=== PATIENT | female | born 1975 | race Caucasian/White ===

== ENCOUNTER 2017-06-15 09:28 | Emergency (ER) | payer MEDICAID ==
[2017-06-15 09:29] VITALS: BMI 26.2
[2017-06-15 09:56] VITALS: TEMP 98.3; O2SAT 99
--- NOTE | 2017-06-15 10:52 | ED PDOC ---
Arrival/HPI - General Chief Complaint: Cough, Cold, Congestion Time Seen by Provider: 06/15/17 10:30 Historian: Patient - History of Present Illness Narrative History of Present Illness (Text): 06/15/17 10:49 Pt is a 42 year old female c/o left sinus pain and left eye pain along with cough and nasal congestion for the past 2 days. Pt states that she has phlegm that she cannot blow out. Denies SHELBY, fever, chills, n/v/d chest pain, sob or any other complaints. Also here to get a refill on her medication for gastritis for the previous diagnosis of GERD. 06/16/17 10:33 Time/Duration: 24 hours Symptom Onset: Gradual Symptom Course: Unchanged Quality: Aching Severity Level: Mild Activities at Onset: Light Context: Home Past Medical History - Provider Review Nursing Documentation Reviewed: Yes - Travel History Have you recently traveled outside US w/in the past 3 mons?: No - Past History Past History: Non-Contributing - Infectious Disease Hx of Infectious Diseases: None - Tetanus Immunization Tetanus Immunization: Unknown - Past Medical History Past Medical History: No Previous - Cardiac Hx Cardiac Disorders: No - Pulmonary Hx Respiratory Disorders: No - Neurological Hx Neurological Disorder: No - HEENT Hx HEENT Disorder: No - Renal Hx Renal Disorder: No - Endocrine/Metabolic Hx Endocrine Disorders: No - Hematological/Oncological Hx Blood Disorders: No - Integumentary Hx Dermatological Disorder: Yes Hx Psoriasis: Yes - Musculoskeletal/Rheumatological Hx Musculoskeletal Disorders: Yes Other/Comment: fibromyalgia - Gastrointestinal Hx Gastrointestinal Disorders: Yes Hx Gastritis: Yes - Genitourinary/Gynecological Hx Genitourinary Disorders: No - Psychiatric Hx Psychophysiologic Disorder: No Hx Substance Use: No - Surgical History Hx Cholecystectomy: Yes - Anesthesia Hx Anesthesia: Yes Hx Anesthesia Reactions: No Hx Malignant Hyperthermia: No - Suicidal Assessment Feels Threatened In Home Enviroment: No Family/Social History - Physician Review Nursing Documentation Reviewed: Yes Family/Social History: Unknown Family HX Smoking Status: Never Smoked Hx Alcohol Use: No Hx Substance Use: No Hx Substance Use Treatment: No Allergies/Home Meds Allergies/Adverse Reactions: Allergies seafood Allergy (Uncoded 06/15/17 09:50) RASH Review of Systems - Review of Systems Constitutional: Normal Eyes: Eye Pain (left) ENT: Rhinorrhea, Sinus Congestion Respiratory: Cough Cardiovascular: Normal Gastrointestinal: Normal Genitourinary Female: Normal Musculoskeletal: Normal Skin: Normal Neurological: Normal Endocrine: Normal Hemo/Lymphatic: Normal Psychiatric: Normal Physical Exam Vital Signs Reviewed: Yes Vital Signs Temp Pulse Resp BP Pulse Ox 06/15/17 11:29 79 18 129/79 99 06/15/17 09:50 98.3 F 94 H 16 145/95 H 99 Temperature: Afebrile Blood Pressure: Normal Pulse: Regular Respiratory Rate: Normal Appearance: Positive for: Well-Appearing, Non-Toxic, Comfortable Pain Distress: None Mental Status: Positive for: Alert and Oriented X 3 - Systems Exam Head: Present: Atraumatic, Normocephalic Pupils: Present: PERRL Extroacular Muscles: Present: EOMI Conjunctiva: Present: Injected Mouth: Present: Moist Mucous Membranes Pharnyx: Present: Normal Nose (Internal): Present: Other (Left sinus pain on palpation) Neck: Present: Normal Range of Motion Respiratory/Chest: Present: Clear to Auscultation, Good Air Exchange. No: Respiratory Distress, Accessory Muscle Use Cardiovascular: Present: Regular Rate and Rhythm, Normal S1, S2. No: Murmurs Abdomen: Present: Normal Bowel Sounds. No: Tenderness, Distention, Peritoneal Signs Back: Present: Normal Inspection Upper Extremity: Present: Normal Inspection. No: Cyanosis, Edema Lower Extremity: Present: Normal Inspection. No: Edema Neurological: Present: GCS=15, CN II-XII Intact, Speech Normal Skin: Present: Warm, Dry, Normal Color. No: Rashes Psychiatric: Present: Alert, Oriented x 3, Normal Insight, Normal Concentration Medical Decision Making ED Course and Treatment: 06/15/17 10:53 Impression Pt is a 42 year old female c/o sinus pain and left eye pain along with cough and nasal congestion for the past 2 days. Plan labs assess and dispo Progress Note Advised pt to use fluticasone nasal spray q12 along with [place] nasal spray q2-4 for sinus congestion; if cough is persistent she can buy OTC cough syrup but recommended rest and fluids No further treatment at this time. If left eye pain worsens along with any change in vision, advised to return promptly to the ED for evaluation 06/15/17 11:40 - Lab Interpretations Lab Results: 06/15/17 11:10 06/15/17 11:10 Lab Results 06/15/17 11:10: Sodium 143, Potassium 4.0, Chloride 106, Carbon Dioxide 27, Anion Gap 14, BUN 12, Creatinine 0.6 L, Est GFR ( Amer) > 60, Est GFR ( Non-Af Amer) > 60, Random Glucose 84, Calcium 9.5, Total Bilirubin 0.7, AST 22, ALT 31, Alkaline Phosphatase 98, Total Protein 7.2, Albumin 4.1, Globulin 3.1, Albumin/Globulin Ratio 1.3 06/15/17 11:10: Urine Color Light yellow, Urine Appearance Clear, Urine pH 6.5, Ur Specific [place] 1.020, Urine Protein Negative, Urine Glucose (UA) Negative, Urine Ketones Negative, Urine Blood Small H, Urine Nitrate Negative, Urine Bilirubin Negative, Urine Urobilinogen 0.2, Ur Leukocyte Esterase Trace H, Urine RBC 5 - 10, Urine WBC 2 - 5, Ur Epithelial Cells 4 - 5, Urine Bacteria Few 06/15/17 11:10: WBC 6.5 D, RBC 4.39, Hgb 13.4, Hct 39.5, MCV 90.0, MCH 30.5, MCHC 33.9, RDW 13.5, Plt Count 180, MPV 10.8 I have reviewed the lab results: Yes Disposition/Present on Arrival - Present on Arrival Any Indicators Present on Arrival: Yes History of DVT/PE: No History of Uncontrolled Diabetes: No Urinary Catheter: No History of Decub. Ulcer: No History Surgical Site Infection Following: None - Disposition Have Diagnosis and Disposition been Completed?: Yes Diagnosis: URI with cough and congestion, Sinusitis nasal, Gastritis Disposition: HOME/ ROUTINE Disposition Time: 11:49 Patient Plan: Discharge Condition: GOOD Discharge Instructions (ExitCare): Gastritis, Sinusitis, Adult (DC), Viral Upper Respiratory Infection, Adult (DC) Additional Instructions: Please take medications as directed and follow up with your primary doctor for further care. If you need a refill for gastritis, please see your doctor for follow up as well. If you have any alarming complaints such as fever, severe pain, chills, or shortness of breath, return to the ER. All the best in your recovery Prescriptions: Famotidine [Pepcid] 20 mg PO DAILY #30 tab Fluticasone Nasal [Flonase] 1 spr NS DAILY 15 Days #1 spr Sodium Chloride/Aloe Vera [[place] Saline Nasal Gel Atco] 22 ml NS Q4 14 Days #1 spray Forms: [facility] [facility] (Jamaican), WORK NOTE
[2017-06-15 11:25] LABS: HEMOGLOBIN 13.4 g/dL (12.0-16.0); MEAN CORPUSCULAR HEMOGLOBIN 30.5 pg (25.0-35.0); MEAN CORPUSCULAR HGB CONC 33.9 g/dl (31.0-37.0); MEAN PLATELET VOLUME 10.8 fl (7.0-11.0); RBC 4.39 10^6/uL (3.5-6.1); RED CELL DISTRIBUTION WIDTH 13.5 % (11.5-14.5); WHITE BLOOD COUNT 6.5 10^3/ul (4.5-11.0)
[2017-06-15 11:38] LABS: ALB/GLOB RATIO 1.3 (1.1-1.8); ALBUMIN 4.1 g/dL (3.0-4.8); ALT/SGPT 31 U/L (7-56); AST/SGOT 22 U/L (14-36); BLOOD UREA NITROGEN 12 mg/dL (7-21); CALCIUM 9.5 mg/dL (8.4-10.5); GFR AFRICAN-AMERICAN > 60; GFR NON-AFRICAN AMERICAN > 60
[2017-06-15 11:40] LABS: PH,URINE 6.5 (4.7-8.0); URINE BILIRUBIN NEGATIVE (NEGATIVE); URINE BLOOD SMALL (NEGATIVE); URINE GLUCOSE (UA) NEGATIVE (NEGATIVE); URINE LEUKOCYTE ESTERASE TRACE Leu/uL (NEGATIVE); URINE PROTEIN NEGATIVE mg/dL (<30 mg/dL); URINE UROBILINOGEN 0.2 E.U./dL (<1 E.U./dL)
[2017-06-15 11:52] LABS: URINE APPEARANCE CLEAR (CLEAR); URINE COLOR LIGHT YELLOW (YELLOW)
[2017-06-15 12:23] LABS: URINE BACTERIA FEW (NEG)
[2017-06-15 12:41] VITALS: BP 129/79; PULSE 79; RESP 18
== END 2017-06-15 12:42 | disposition home or self-care (01) ==
LOC: ED 09:28
DX: J01.90 Acute sinusitis, unspecified (principal); K29.70 Gastritis, unspecified, without bleeding

== ENCOUNTER 2017-08-20 09:17 | Emergency (ER) | payer MEDICAID ==
[2017-08-20 09:18] VITALS: BMI 26.2
[2017-08-20 09:45] VITALS: TEMP 98
--- NOTE | 2017-08-20 10:38 | ED PDOC ---
Arrival/HPI - General Chief Complaint: Eye Problem Time Seen by Provider: 08/20/17 10:22 Historian: Patient - History of Present Illness Narrative History of Present Illness (Text): 08/20/17 10:33 42-year-old female presents today with a 4 day history of bilateral itchy watery eyes. Patient states she's also been having nasal congestion sneezing and phlegm. Patient denies blurred vision. Denies sick contacts. Patient denies chest pain or shortness of breath. Denies abdominal pain. No nausea or vomiting. Patient states she recently moved from [place] to [place] and she is wishing she could also have a refill of her Pepcid prescription. Patient denies fevers or chills. No other complaints Time/Duration: Other (4 days) Symptom Onset: Gradual Symptom Course: Unchanged Quality: Other (itchy) Past Medical History - Provider Review Nursing Documentation Reviewed: Yes - Travel History Have you recently traveled outside US w/in the past 3 mons?: No - Past History Past History: Non-Contributing - Infectious Disease Hx of Infectious Diseases: None - Tetanus Immunization Tetanus Immunization: Unknown - Past Medical History Past Medical History: No Previous - Cardiac Hx Cardiac Disorders: No - Pulmonary Hx Respiratory Disorders: No - Neurological Hx Neurological Disorder: No - HEENT Hx HEENT Disorder: No - Renal Hx Renal Disorder: No - Endocrine/Metabolic Hx Endocrine Disorders: No - Hematological/Oncological Hx Blood Disorders: No - Integumentary Hx Dermatological Disorder: Yes Hx Psoriasis: Yes - Musculoskeletal/Rheumatological Hx Musculoskeletal Disorders: Yes Other/Comment: fibromyalgia - Gastrointestinal Hx Gastrointestinal Disorders: Yes Hx Gastritis: Yes - Genitourinary/Gynecological Hx Genitourinary Disorders: No - Psychiatric Hx Psychophysiologic Disorder: No Hx Substance Use: No - Surgical History Hx Cholecystectomy: Yes - Anesthesia Hx Anesthesia: Yes Hx Anesthesia Reactions: No Hx Malignant Hyperthermia: No - Suicidal Assessment Feels Threatened In Home Enviroment: No Family/Social History - Physician Review Nursing Documentation Reviewed: Yes Family/Social History: Unknown Family HX Smoking Status: Never Smoked Hx Alcohol Use: No Hx Substance Use: No Hx Substance Use Treatment: No Allergies/Home Meds Allergies/Adverse Reactions: Allergies seafood Allergy (Uncoded 08/20/17 09:27) RASH Review of Systems - Review of Systems Constitutional: absent: Fatigue, Fevers Eyes: Other (itchy eyes). absent: Vision Changes, Photophobia, Eye Pain ENT: Sinus Congestion. absent: Sore Throat, Epistaxis Respiratory: absent: SOB, Cough Cardiovascular: absent: Chest Pain, Palpitations Gastrointestinal: absent: Abdominal Pain, Nausea, Vomiting Genitourinary Female: absent: Dysuria Musculoskeletal: absent: Arthralgias Skin: Pruritis. absent: Rash Neurological: absent: Headache, Dizziness Psychiatric: absent: Anxiety, Depression Physical Exam Vital Signs Reviewed: Yes Vital Signs Temp Pulse Resp BP Pulse Ox 08/20/17 09:44 98 F 69 18 132/85 96 Temperature: Afebrile Blood Pressure: Normal Pulse: Regular Respiratory Rate: Normal Appearance: Positive for: Well-Appearing, Non-Toxic, Comfortable Pain Distress: None Mental Status: Positive for: Alert and Oriented X 3 - Systems Exam Head: Present: Atraumatic, Other (no periorbital edema/erythema or ecchymosis .) . No: Tenderness (no frontal or maxillar sinus tenderness), Swelling Pupils: Present: PERRL. No: Sluggish, Pinpoint Extroacular Muscles: Present: EOMI. No: Entrapment Conjunctiva: Present: Normal. No: Injected Ears: Present: Normal, NORMAL TM, Normal Canal. No: Erythema, TM Bulging, TM Perf Mouth: Present: Moist Mucous Membranes, Normal Lips, Normal Tounge. No: Drooling, Trismus Pharnyx: Present: Normal. No: ERYTHEMA, EXUDATE Nose (External): Present: Atraumatic Nose (Internal): Present: Normal Inspection. No: No Active Bleeding, Moist, Septal Deviation, Septal Hematoma, Epistaxis Neck: Present: Normal Range of Motion, Trachea Midline Respiratory/Chest: Present: Clear to Auscultation, Good Air Exchange. No: Respiratory Distress, Accessory Muscle Use Cardiovascular: Present: Regular Rate and Rhythm, Normal S1, S2. No: Murmurs Skin: Present: Warm, Dry Psychiatric: Present: Alert, Oriented x 3 Medical Decision Making ED Course and Treatment: 08/20/17 10:35 42-year-old female with a 4 day history of bilateral itchy eyes Visual acuity: Within normal limits Patient nontoxic well-appearing no distress with stable vital signs We'll discharge the patient home with Patanol eyedrops and Claritin. We'll give patient a refill of her Pepcid. Patient was advised to follow-up with the eye doctor within the next 2 days. Patient was advised me to return if symptoms worsen or persist or if new concerning symptoms develop Patient verbalizes understanding of discharge instructions and need for immediate followup. all aspects of this case were discussed the attending of record. Impression: Seasonal allergies, allergic eye Claritin once daily Patanol 1 drop twice daily in each eye Follow-up with the eye doctor within the next 2 days Follow-up with primary care physician within the next 2 days Return if symptoms worsen persist or new concerning symptoms develop Disposition/Present on Arrival - Present on Arrival Any Indicators Present on Arrival: No History of DVT/PE: No History of Uncontrolled Diabetes: No Urinary Catheter: No History of Decub. Ulcer: No History Surgical Site Infection Following: None - Disposition Have Diagnosis and Disposition been Completed?: Yes Diagnosis: Itchy eyes Disposition: HOME/ ROUTINE Disposition Time: 11:11 Patient Plan: Discharge Condition: GOOD Additional Instructions: Claritin once daily Patanol 1 drop twice daily in each eye Follow-up with the eye doctor within the next 2 days Follow-up with primary care physician within the next 2 days Return if symptoms worsen persist or new concerning symptoms develop Prescriptions: Famotidine [Pepcid] 20 mg PO DAILY #30 tab Loratadine [Claritin] 10 mg PO DAILY #30 tab Olopatadine 0.1% Opht [Patanol 5 Ml] 1 drop OU BID #1 bottle Referrals: Jimmie Rios MD [Staff Provider] - Follow up with primary Jelani Stephenson MD [Staff Provider] - Follow up with primary Forms: [facility] (Macedonian), WORK NOTE
[2017-08-20 11:40] VITALS: O2SAT 100
[2017-08-20 12:13] VITALS: BP 148/86; PULSE 62
[2017-08-20 12:14] VITALS: RESP 16
== END 2017-08-20 12:14 | disposition home or self-care (01) ==
LOC: ED 09:17
DX: H57.8 Other specified disorders of eye and adnexa (principal); M79.7 Fibromyalgia

== ENCOUNTER 2017-11-13 16:45 | Emergency (ER) | payer MEDICAID, OTHER ==
[2017-11-13 16:45] VITALS: BMI 26.2
[2017-11-13 17:03] VITALS: RESP 18; TEMP 97.6
[2017-11-13] MEDS ORDERED: Pantoprazole 40 MG in Sodium Chloride 0.9% 100 ML IV STA (17:18)
[2017-11-13] MEDS ORDERED: Sodium Chloride 0.9% 1,000 ML IV STA (17:19)
--- NOTE | 2017-11-13 17:41 | ED PDOC ---
Arrival/HPI - General Chief Complaint: Cough, Cold, Congestion Time Seen by Provider: 11/13/17 17:02 Historian: Patient - History of Present Illness Narrative History of Present Illness (Text): 11/13/17 17:38 42 yo female w/PMhx of gastritis come in for evaluation of epigastric pain gradually developed for past 2 weeks. Pt sts, " when have that long stomach pain developed migraine". Pt admits, takes pepcid at home without significant improvement in epigastric pain. Pt describes headache as intermittent frontal, aching associated with post-nasal drip. Otherwise, pt dneies high fever, chills , denies worse headache of life, visual changes, focal deficits, neck pain, sore throat, drooling, neck pain, CP, SOB, dyspnea, cough, N/V/D, change in appetite, hematemesis, UTI sx, back pain. Ambulate to ED for evaluation, not in nay apparent distress. Past Medical History - Provider Review Nursing Documentation Reviewed: Yes - Travel History Have you recently traveled outside US w/in the past 3 mons?: No - Patient History Narrative Patient History: gastritis - Infectious Disease Hx of Infectious Diseases: None - Tetanus Immunization Tetanus Immunization: Unknown - Past Medical History Past Medical History: No Previous - Cardiac Hx Cardiac Disorders: No - Pulmonary Hx Respiratory Disorders: No - Neurological Hx Neurological Disorder: No - HEENT Hx HEENT Disorder: No - Renal Hx Renal Disorder: No - Endocrine/Metabolic Hx Endocrine Disorders: No - Hematological/Oncological Hx Blood Disorders: No - Integumentary Hx Dermatological Disorder: Yes Hx Psoriasis: Yes - Musculoskeletal/Rheumatological Hx Musculoskeletal Disorders: Yes Other/Comment: fibromyalgia - Gastrointestinal Hx Gastrointestinal Disorders: Yes Hx Gastritis: Yes - Genitourinary/Gynecological Hx Genitourinary Disorders: No - Psychiatric Hx Psychophysiologic Disorder: No Hx Substance Use: No - Surgical History Hx Cholecystectomy: Yes - Anesthesia Hx Anesthesia: Yes Hx Anesthesia Reactions: No Hx Malignant Hyperthermia: No - Suicidal Assessment Feels Threatened In Home Enviroment: No Family/Social History - Physician Review Nursing Documentation Reviewed: Yes Family/Social History: No Known Family HX Smoking Status: Never Smoked Hx Alcohol Use: No Hx Substance Use: No Hx Substance Use Treatment: No Allergies/Home Meds Allergies/Adverse Reactions: Allergies seafood Allergy (Uncoded 11/13/17 17:02) RASH Review of Systems - Review of Systems Constitutional: Normal. absent: Fatigue, Fevers Eyes: Normal. absent: Vision Changes, Photophobia ENT: Sinus Congestion Respiratory: Normal. absent: SOB, Cough, Sputum Cardiovascular: Normal. absent: Chest Pain, Palpitations Gastrointestinal: Abdominal Pain. absent: Stool Changes, Constipation, Diarrhea , Nausea, Vomiting, Appetite Changes, Hematochezia, Hematemesis Genitourinary Female: Normal. absent: Dysuria Musculoskeletal: Normal Skin: Normal. absent: Rash Neurological: Headache. absent: Dizziness, Focal Weakness, Gait Changes, Speech Changes Endocrine: Normal Hemo/Lymphatic: Normal Psychiatric: Normal Physical Exam Vital Signs Temp Pulse Resp BP Pulse Ox 11/13/17 16:56 97.6 F 92 H 18 124/86 97 Temperature: Afebrile Blood Pressure: Normal Pulse: Regular Respiratory Rate: Normal Appearance: Positive for: Well-Appearing, Non-Toxic, Comfortable Pain Distress: Mild Mental Status: Positive for: Alert and Oriented X 3 - Systems Exam Extroacular Muscles: Present: EOMI Conjunctiva: Present: Normal Ears: Present: NORMAL TM, Normal Canal Mouth: Present: Moist Mucous Membranes, Normal Lips. No: Drooling Pharnyx: No: ERYTHEMA, EXUDATE, TONSILS ENLARGED Nose (Internal): Present: Clear Mucous Neck: Present: Trachea Midline. No: JVD, Bruit Respiratory/Chest: Present: Clear to Auscultation, Good Air Exchange. No: Respiratory Distress, Accessory Muscle Use Cardiovascular: Present: Regular Rate and Rhythm, Normal S1, S2. No: Murmurs Abdomen: Present: Tenderness (mild epigastric). No: Distention, Peritoneal Signs, Rebound, Guarding Back: No: CVA Tenderness Upper Extremity: Present: Normal Inspection Lower Extremity: Present: Normal Inspection. No: Edema, CALF TENDERNESS Neurological: Present: GCS=15, Speech Normal, Normal Sensory Function, Norm Deep Tendon Reflexes, Gait Normal Skin: Present: Warm, Dry, Normal Color. No: Rashes Psychiatric: Present: Alert, Oriented x 3, Normal Insight, Normal Concentration Medical Decision Making ED Course and Treatment: 11/13/17 18:41 Pt was OBS in ED for 3 hours and reports moderate improvement in sx. On re-evaluation, pt is afebrile, hemodynamicaly stable. Non-toxic, tolerate Po well in ED. PulsEOx 97% RA ENT: no acute findings. uvula midline, no edema. neck: Supple. Lungs: CTA B/L, BS equal B/L. CVS: (+)S1S2, reg. Abd: benign, (-) guarding, (-) rebound, (-) localized tenderness. Back: (-) CVA tenderness Neurologicaly intact. Blood work review and without acute abnormalities. UA- normal study. Pt has clinical findings c/w sinusitis, GERD. Pt advised. ref. to F/u with PMD, GI in2 -3 days for re-evaluation. return to ED if any worsening or new changes. - Lab Interpretations Lab Results: 11/13/17 18:00 11/13/17 18:00 Lab Results 11/13/17 18:00: Sodium 142, Potassium 3.7, Chloride 104, Carbon Dioxide 27, Anion Gap 14, BUN 17, Creatinine 0.8, Est GFR ( Amer) > 60, Est GFR (Non- Af Amer) > 60, Random Glucose 90, Calcium 9.4, Total Bilirubin 0.7, AST 23, ALT 28, Alkaline Phosphatase 102, Total Protein 7.5, Albumin 4.3, Globulin 3.1, Albumin/Globulin Ratio 1.4, Amylase 98, Lipase 142 11/13/17 18:00: Urine Color Yellow, Urine Appearance Clear, Urine pH 6.5, Ur Specific [place] 1.020, Urine Protein Negative, Urine Glucose (UA) Negative, Urine Ketones Negative, Urine Blood Trace-intact H, Urine Nitrate Negative, Urine Bilirubin Negative, Urine Urobilinogen 0.2, Ur Leukocyte Esterase Negative , Urine RBC Pending, Urine WBC Pending 11/13/17 18:00: WBC 9.2 D, RBC 4.50, Hgb 13.6, Hct 38.9, MCV 86.4 D, MCH 30.2 , MCHC 35.0, RDW 13.5, Plt Count 224, MPV 10.4, Gran % 66.1, Lymph % (Auto) 26.8 , [place] % (Auto) 5.6, Eos % (Auto) 1.3 L, Baso % (Auto) 0.2, Gran # 6.09, Lymph # (Auto) 2.5, [place] # (Auto) 0.5, Eos # (Auto) 0.1, Baso # (Auto) 0.02 - Medication Orders Current Medication Orders: Discontinued Medications Famotidine (Pepcid) 20 mg IVP STAT STA Stop: 11/13/17 17:19 Last Admin: 11/13/17 17:50 Dose: 20 mg IVP Administration Document 11/13/17 17:50 EQ (Rec: 11/13/17 17:50 EQ [id number]) Charges for Administration # of IVP Administrations 1 Pantoprazole Sodium 40 mg/ (Sodium Chloride) 100 mls @ 400 mls/hr IV STAT STA Stop: 11/13/17 17:32 Last Admin: 11/13/17 17:51 Dose: 400 mls/hr eMAR Start Stop Document 11/13/17 17:51 EQ (Rec: 11/13/17 17:51 EQ [id number]) Intravenous Solution Start Date 11/13/17 Start Time 17:51 Sodium Chloride (Sodium Chloride 0.9%) 1,000 mls @ 999 mls/hr IV .Q1H1M STA Stop: 11/13/17 18:19 Last Admin: 11/13/17 17:50 Dose: 999 mls/hr eMAR Start Stop Document 11/13/17 17:50 EQ (Rec: 11/13/17 17:50 EQ [id number]) Intravenous Solution Start Date 11/13/17 Start Time 17:50 Ondansetron HCl (Zofran Inj) 4 mg IVP STAT STA Stop: 11/13/17 17:19 Last Admin: 11/13/17 17:50 Dose: 4 mg IVP Administration Document 11/13/17 17:50 EQ (Rec: 11/13/17 17:50 EQ [id number]) Charges for Administration # of IVP Administrations 1 Disposition/Present on Arrival - Present on Arrival Any Indicators Present on Arrival: No History of DVT/PE: No History of Uncontrolled Diabetes: No Urinary Catheter: No History of Decub. Ulcer: No History Surgical Site Infection Following: None - Disposition Have Diagnosis and Disposition been Completed?: Yes Diagnosis: Sinusitis, GERD (gastroesophageal reflux disease) Disposition: HOME/ ROUTINE Disposition Time: 18:45 Patient Plan: Discharge Patient Problems: Current Active Problems Problem Status Onset GERD (gastroesophageal reflux disease) Acute Sinusitis Acute Condition: STABLE Discharge Instructions (ExitCare): Sinusitis in Adults, Acid Reflux ( Gastroesophageal Reflux Disease) in Adults Additional Instructions: Diet restriction, avoid spicy, fatty food for 1-2 weeks Encourage fluids take medication as prescribed Follow up with PMD, GI in 2 -3 days for re-evaluation. Return to ED if any worsening or new chanegs. Prescriptions: Amoxicillin/Clavulanate [Augmentin 875 MG-125 MG] 1 tab PO BID #14 tab Fluticasone Propionate [Flonase] 1 actuation NS BID #1 bottle Pantoprazole Sodium [Protonix] 40 mg PO DAILY #20 ect Referrals: PCP,NO [Primary Care Provider] - Follow up with primary [facility] [place] - Follow up with primary James Javed MD [Medical Doctor] - Follow up with primary Forms: [email or web address] (Belarusian)
[2017-11-13 18:19] LABS: BASO # 0.02 K/mm3 (0.0-2.0); BASO % 0.2 % (0.0-3.0); EOS # 0.1 (0.0-0.7); EOS % 1.3 % (1.5-5.0); GRAN # 6.09 (1.4-6.5); GRAN % 66.1 % (50.0-68.0); HEMOGLOBIN 13.6 g/dL (12.0-16.0); LYMPH # 2.5 (1.2-3.4); LYMPH % 26.8 % (22.0-35.0); MEAN CELL VOLUME 86.4 fl (80.0-105.0); MEAN CORPUSCULAR HEMOGLOBIN 30.2 pg (25.0-35.0); MEAN PLATELET VOLUME 10.4 fl (7.0-11.0); MONO # 0.5 (0.1-0.6); MONO % 5.6 % (1.0-6.0); RBC 4.5 10^6/uL (3.5-6.1); RED CELL DISTRIBUTION WIDTH 13.5 % (11.5-14.5); WHITE BLOOD COUNT 9.2 10^3/ul (4.5-11.0)
[2017-11-13 18:23] LABS: PH,URINE 6.5 (4.7-8.0); URINE BILIRUBIN NEGATIVE (NEGATIVE); URINE BLOOD TRACE-INTACT (NEGATIVE); URINE GLUCOSE (UA) NEGATIVE (NEGATIVE); URINE LEUKOCYTE ESTERASE NEGATIVE Leu/uL (NEGATIVE); URINE PROTEIN NEGATIVE mg/dL (<30 mg/dL); URINE UROBILINOGEN 0.2 E.U./dL (<1 E.U./dL)
[2017-11-13 18:24] LABS: URINE APPEARANCE CLEAR (CLEAR); URINE COLOR YELLOW (YELLOW)
[2017-11-13 18:37] LABS: ALB/GLOB RATIO 1.4 (1.1-1.8); ALBUMIN 4.3 g/dL (3.0-4.8); ALT/SGPT 28 U/L (7-56); AMYLASE 98 U/L (35-125); AST/SGOT 23 U/L (14-36); BLOOD UREA NITROGEN 17 mg/dL (7-21); CALCIUM 9.4 mg/dL (8.4-10.5); GFR AFRICAN-AMERICAN > 60; GFR NON-AFRICAN AMERICAN > 60; LIPASE 142 U/L (23-300)
[2017-11-13 18:46] LABS: URINE BACTERIA TRACE (NEG); URINE RBC 0 - 2 /hpf (0-2); URINE WBC 0 - 2 /hpf (0-6)
[2017-11-13 19:08] VITALS: BP 117/82; PULSE 85; O2SAT 98
== END 2017-11-13 19:25 | disposition home or self-care (01) ==
LOC: ED 16:45
DX: K21.9 Gastro-esophageal reflux disease without esophagitis (principal); J32.9 Chronic sinusitis, unspecified; M79.7 Fibromyalgia
CPT/HCPCS: 80053; 81001; 82150; 83690; 85025; 87086; 96374; 96375; 99283; C9113; J1885; J2405; J7030

== ENCOUNTER 2018-06-22 10:48 | Emergency (ER) | payer MEDICAID ==
[2018-06-22 10:49] VITALS: BMI 26.2
[2018-06-22] MEDS ORDERED: Sodium Chloride 0.9% 1,000 ML IV STA (11:23)
--- NOTE | 2018-06-22 11:40 | ED PDOC ---
Arrival/HPI - General Chief Complaint: Headache Time Seen by Provider: 06/22/18 11:12 Historian: Patient - History of Present Illness Narrative History of Present Illness (Text): 06/22/18 11:31 43 y/o female with PMH of migraines, psoriasis, and fibromyalgia presents to the ED c/o headache since yesterday. Headache is located across the forehead and described as throbbing. States that it feels similar to past migraines. Also c/o left leg pain, isolated to the outer thigh. Has not taken any medication for pain. Denies fever, chills, abdominal pain, nausea, vomiting, photophobia, phonophobia, dizziness, vision changes, weakness, numbness, paresthesias, imbalance, chest pain, SOB, calf pain, back pain, or any other associated symptoms. Past Medical History - Provider Review Nursing Documentation Reviewed: Yes - Infectious Disease Hx of Infectious Diseases: None - Tetanus Immunization Tetanus Immunization: Unknown - Past Medical History Past Medical History: No Previous - Cardiac Hx Cardiac Disorders: No - Pulmonary Hx Respiratory Disorders: No - Neurological Hx Neurological Disorder: No - HEENT Hx HEENT Disorder: No - Renal Hx Renal Disorder: No - Endocrine/Metabolic Hx Endocrine Disorders: No - Hematological/Oncological Hx Blood Disorders: No - Integumentary Hx Dermatological Disorder: Yes Hx Psoriasis: Yes - Musculoskeletal/Rheumatological Hx Musculoskeletal Disorders: Yes Other/Comment: fibromyalgia - Gastrointestinal Hx Gastrointestinal Disorders: Yes Hx Gastritis: Yes - Genitourinary/Gynecological Hx Genitourinary Disorders: No - Psychiatric Hx Psychophysiologic Disorder: No Hx Substance Use: No - Surgical History Hx Cholecystectomy: Yes - Anesthesia Hx Anesthesia: Yes Hx Anesthesia Reactions: No Hx Malignant Hyperthermia: No - Suicidal Assessment Feels Threatened In Home Enviroment: No Family/Social History - Physician Review Nursing Documentation Reviewed: Yes Family/Social History: No Known Family HX Smoking Status: Never Smoked Hx Alcohol Use: No Hx Substance Use: No Hx Substance Use Treatment: No Allergies/Home Meds Allergies/Adverse Reactions: Allergies seafood Allergy (Uncoded 06/22/18 11:11) RASH Review of Systems - Review of Systems Constitutional: Normal. absent: Fevers Eyes: Normal. absent: Vision Changes, Photophobia, Eye Pain ENT: Normal. absent: Hearing Changes, Sore Throat, Sinus Congestion Respiratory: Normal. absent: SOB, Cough Cardiovascular: Normal. absent: Chest Pain, Palpitations Gastrointestinal: Normal. absent: Abdominal Pain, Stool Changes, Nausea, Vomiting, Appetite Changes Genitourinary Female: Normal. absent: Dysuria, Frequency Musculoskeletal: Myalgias. absent: Arthralgias, Back Pain, Neck Pain Skin: Normal. absent: Rash, Cellulitis Neurological: Headache. absent: Dizziness, Focal Weakness, Gait Changes, Speech Changes, Facial Droop, Disequilibrium, Seizure Endocrine: Normal Hemo/Lymphatic: Normal Psychiatric: Normal Physical Exam Vital Signs Reviewed: Yes Vital Signs Temp Pulse Resp BP Pulse Ox 06/22/18 11:09 98.3 F 60 18 143/85 98 Temperature: Afebrile Blood Pressure: Normal Pulse: Regular Respiratory Rate: Normal Appearance: Positive for: Well-Appearing, Non-Toxic, Comfortable Pain Distress: None Mental Status: Positive for: Alert and Oriented X 3 - Systems Exam Head: Present: Atraumatic, Normocephalic Pupils: Present: PERRL Extroacular Muscles: Present: EOMI Conjunctiva: Present: Normal Ears: Present: Normal, NORMAL TM, Normal Canal Mouth: Present: Moist Mucous Membranes Pharnyx: Present: Normal. No: ERYTHEMA, EXUDATE, TONSILS ENLARGED Neck: Present: Normal Range of Motion. No: Meningeal Signs, MIDLINE TENDERNESS, Paraspinal Tenderness Respiratory/Chest: Present: Clear to Auscultation, Good Air Exchange. No: Respiratory Distress, Accessory Muscle Use Cardiovascular: Present: Regular Rate and Rhythm, Normal S1, S2, Peripheal Pulses Present Abdomen: Present: Normal Bowel Sounds. No: Tenderness, Distention, Peritoneal Signs, Rebound, Guarding Back: Present: Normal Inspection. No: CVA Tenderness, Midline Tenderness, Paraspinal Tenderness, Pain with Leg Raise Upper Extremity: Present: Normal Inspection, Normal ROM, NORMAL PULSES, Neurovascularly Intact, Capillary Refill < 2s. No: Cyanosis, Edema, Temperature Abnormalties Lower Extremity: Present: Normal Inspection, NORMAL PULSES, Normal ROM, Neurovascularly Intact, Capillary Refill < 2 s. No: Edema, Tenderness, Swelling, Deformity, Temperature Abnormalties Neurological: Present: GCS=15, CN II-XII Intact, Speech Normal, Motor Func Grossly Intact, Normal Sensory Function, Normal Cerebellar Funct, Gait Normal Skin: Present: Warm, Dry, Normal Color. No: Rashes Lymphatic: No: Cervical Adenopathy Psychiatric: Present: Alert, Oriented x 3, Normal Insight, Normal Concentration, Normal Affect, Normal Mood Medical Decision Making ED Course and Treatment: Initial Plan: * Venous Duplex * Rapid Flu * UA * Toradol * IVF * Reglan 12:41 Venous duplex prelim read negative for DVT Rapid flu negative POC negative UA unremarkable 13:00 Patient reports resolution of pain with medication. Requesting discharge home. Diagnostic testing results and plan of care discussed with patient. Strict instructions given regarding prescription use, importance of followup, and signs/symptoms to return to ER including numbness, weakness, paresthesias, vision change, or any other new/worsening symptoms. Pt verbalized understanding of discussion. Patient is A&Ox3, ambulating with steady gait, with vital signs stable for discharge. - Lab Interpretations Lab Results: Lab Results 06/22/18 11:35: Urine Color Yellow, Urine Appearance Clear, Urine pH 8.5, Ur Specific [place] 1.015, Urine Protein Negative, Urine Glucose (UA) Negative, Urine Ketones Negative, Urine Blood Negative, Urine Nitrate Negative, Urine Bilirubin Negative, Urine Urobilinogen 0.2, Ur Leukocyte Esterase Trace H, Urine RBC 0 - 2, Urine WBC 1 - 3, Ur Epithelial Cells Many H, Urine Bacteria Many, Urine Other Uyeast 06/22/18 11:35: Influenza Typ A,B (EIA) Negative for flu a/b I have reviewed the lab results: Yes - RAD Interpretation Radiology Orders: 06/22/18 11:21 DUPLEX LOWER EXTRM VEIN LEFT [US] Stat - Medication Orders Current Medication Orders: Sodium Chloride (Sodium Chloride 0.9%) 1,000 mls @ 999 mls/hr IV .Q1H1M STA Stop: 06/22/18 12:23 Discontinued Medications Ketorolac Tromethamine (Toradol) 30 mg IVP STAT STA Stop: 06/22/18 11:24 Metoclopramide HCl (Reglan) 10 mg IVP STAT STA Stop: 06/22/18 11:24 Disposition/Present on Arrival - Present on Arrival Any Indicators Present on Arrival: No History of DVT/PE: No History of Uncontrolled Diabetes: No Urinary Catheter: No History of Decub. Ulcer: No History Surgical Site Infection Following: None - Disposition Have Diagnosis and Disposition been Completed?: Yes Diagnosis: Headache, Leg pain Disposition: HOME/ ROUTINE Disposition Time: 13:45 Patient Plan: Discharge Condition: IMPROVED Discharge Instructions (ExitCare): Migraine Headache (DC) Additional Instructions: Ibuprofen every 8 hours as needed for pain Increase fluids Rest, no strenuous activity Followup with orthopedics within 2 days Followup with primary doctor within 2 days Return to ER with any new/worsening symptoms Prescriptions: Ibuprofen [Motrin Tab] 600 mg PO Q8 #30 tab Referrals: Prince Varela III, MD [Medical Doctor] - Follow up with primary Pedro Rebolledo MD [Staff Provider] - Follow up with primary Forms: [employer] (Scottish), WORK NOTE
[2018-06-22 11:58] LABS: PH,URINE 8.5 (4.7-8.0); URINE BILIRUBIN NEGATIVE (NEGATIVE); URINE BLOOD NEGATIVE (NEGATIVE); URINE GLUCOSE (UA) NEGATIVE (NEGATIVE); URINE LEUKOCYTE ESTERASE TRACE Leu/uL (NEGATIVE); URINE PROTEIN NEGATIVE mg/dL (<30 mg/dL); URINE UROBILINOGEN 0.2 E.U./dL (<1 E.U./dL)
[2018-06-22 12:16] LABS: URINE APPEARANCE CLEAR (CLEAR); URINE COLOR YELLOW (YELLOW)
[2018-06-22 12:21] LABS: URINE BACTERIA MANY /hpf; URINE EPITHELIAL CELLS MANY /hpf (0-5); URINE RBC 0 - 2 /hpf (0-2)
[2018-06-22 14:05] VITALS: BP 122/81; PULSE 75; RESP 16; TEMP 98.5; O2SAT 99
--- NOTE | 2018-06-23 12:08 | US ---
PROCEDURE: Left lower extremity venous US HISTORY: Leg pain and swelling. Evaluate for DVT. PHYSICIAN(S): Flako Zamora MD. TECHNIQUE: Duplex sonography and color-flow Doppler with graded compression were used to evaluate the deep venous system of the left lower extremity. FINDINGS: The visualized deep venous system of the left lower extremity is sonographically normal and compressible. Normal wave forms and augmentation are seen. There is no sonographic evidence for deep venous thrombosis in the visualized segments of the left lower extremity. IMPRESSION: 1. No sonographic evidence for deep venous thrombosis in the visualized segments of the left lower extremity. 2. Limited study
== END 2018-06-22 14:04 | disposition home or self-care (01) ==
LOC: ED 10:48
DX: R51 Headache (principal); M79.605 Pain in left leg; M79.7 Fibromyalgia
CPT/HCPCS: 81001; 81025; 87086; 87804; 93971; 96374; 96375; 99282; J1885; J2765; J7030

== ENCOUNTER 2018-07-17 08:55 | Emergency (ER) | payer MEDICAID ==
[2018-07-17 09:06] VITALS: BMI 27.4
[2018-07-17 09:10] VITALS: BP 137/74; PULSE 77; RESP 18; TEMP 98; O2SAT 99
--- NOTE | 2018-07-17 09:22 | ED PDOC ---
Arrival/HPI - General Chief Complaint: Allergic Reaction Time Seen by Provider: 07/17/18 09:04 Historian: Patient - History of Present Illness Narrative History of Present Illness (Text): 07/17/18 09:12 43 y/o female, no significant pmh, nkda, c/o coughing episode yesterday. Pt. stated that she was eating apple pie yesterday, choking and coughing, mildly to the nasal area, feeling well today, here for the evaluation. Pt. has no nasal or chest pain/discomfort, no runny nose, no foreign body sensation, no problem eating dinner last night and breakfast this morning, eating and drinking well with no discomfort, no fever or chills, no choking sensation, no dizziness, no rash, no other medical or psychological complaints. Past Medical History - Provider Review Nursing Documentation Reviewed: Yes - Infectious Disease Hx of Infectious Diseases: None - Tetanus Immunization Tetanus Immunization: Unknown - Past Medical History Past Medical History: No Previous - Cardiac Hx Cardiac Disorders: No - Pulmonary Hx Respiratory Disorders: No - Neurological Hx Neurological Disorder: No - HEENT Hx HEENT Disorder: No - Renal Hx Renal Disorder: No - Endocrine/Metabolic Hx Endocrine Disorders: No - Hematological/Oncological Hx Blood Disorders: No - Integumentary Hx Dermatological Disorder: Yes Hx Psoriasis: Yes - Musculoskeletal/Rheumatological Hx Musculoskeletal Disorders: Yes Other/Comment: fibromyalgia - Gastrointestinal Hx Gastrointestinal Disorders: Yes Hx Gastritis: Yes - Genitourinary/Gynecological Hx Genitourinary Disorders: No - Psychiatric Hx Psychophysiologic Disorder: No Hx Substance Use: No - Surgical History Hx Cholecystectomy: Yes - Anesthesia Hx Anesthesia: Yes Hx Anesthesia Reactions: No Hx Malignant Hyperthermia: No - Suicidal Assessment Feels Threatened In Home Enviroment: No Family/Social History - Physician Review Nursing Documentation Reviewed: Yes Family/Social History: Unknown Family HX Smoking Status: Never Smoked Hx Alcohol Use: No Hx Substance Use: No Hx Substance Use Treatment: No Allergies/Home Meds Allergies/Adverse Reactions: Allergies seafood Allergy (Uncoded 06/22/18 11:11) RASH Review of Systems - Review of Systems Constitutional: absent: Fatigue, Fevers Eyes: absent: Vision Changes ENT: absent: Hearing Changes, Sore Throat, Rhinorrhea Respiratory: absent: SOB, Cough, Sputum, Wheezing Cardiovascular: absent: Chest Pain Gastrointestinal: absent: Abdominal Pain, Nausea, Vomiting Musculoskeletal: absent: Arthralgias, Back Pain Skin: absent: Rash, Pruritis Neurological: absent: Headache Psychiatric: absent: Anxiety, Depression, Suicidal Ideation Physical Exam Vital Signs Reviewed: Yes Vital Signs Temp Pulse Resp BP Pulse Ox 07/17/18 08:56 98.0 F 77 18 137/74 99 Temperature: Afebrile Blood Pressure: Normal Pulse: Regular Respiratory Rate: Normal Appearance: Positive for: Well-Appearing, Non-Toxic, Comfortable Pain Distress: None Mental Status: Positive for: Alert and Oriented X 3 - Systems Exam Head: Present: Atraumatic, Normocephalic Pupils: Present: PERRL Extroacular Muscles: Present: EOMI Conjunctiva: Present: Normal Ears: Present: NORMAL TM, Normal Canal. No: Erythema Mouth: Present: Moist Mucous Membranes, Normal Lips, Normal Tounge, Normal Teeth, Other (no visible foreign bodies). No: Dry, Drooling, Trismus Pharnyx: Present: Normal. No: ERYTHEMA, EXUDATE, TONSILS ENLARGED, Peritonsilar Swelling, Uvular Deviation, Muffled/Hoarse Voice, Strider, Soft Palate/Uvular Edema Nose (External): Present: Atraumatic. No: Abrasion, Contusion, Laceration Nose (Internal): Present: Moist, Other (no visible foreign bodies). No: Normal Inspection, No Active Bleeding, Engorged, Edematous, Clear Mucous, Rhinorrhea, Purulent Mucous, Septal Deviation, Septal Hematoma, Epistaxis Neck: Present: Normal Range of Motion Respiratory/Chest: Present: Clear to Auscultation, Good Air Exchange. No: Respiratory Distress, Accessory Muscle Use, Wheezes, Decreased Breath Sounds, Rales, Retracting, Rhonchi, Tachypneic, Tender to Palpation Cardiovascular: Present: Regular Rate and Rhythm, Normal S1, S2. No: Murmurs Abdomen: No: Tenderness, Distention, Peritoneal Signs, Rebound, Guarding Back: Present: Normal Inspection. No: CVA Tenderness, Midline Tenderness, Paraspinal Tenderness Upper Extremity: Present: Normal Inspection, Normal ROM, NORMAL PULSES, Neurovascularly Intact, Capillary Refill < 2s. No: Cyanosis, Edema, Deformity Lower Extremity: Present: Normal Inspection, NORMAL PULSES, Normal ROM, Neurovascularly Intact, Capillary Refill < 2 s. No: Edema, Deformity Neurological: Present: GCS=15, CN II-XII Intact, Speech Normal, Motor Func Grossly Intact, Normal Cerebellar Funct, Gait Normal, Memory Normal Skin: Present: Warm, Dry, Normal Color. No: Rashes Psychiatric: Present: Alert, Oriented x 3, Normal Insight, Normal Concentration Medical Decision Making ED Course and Treatment: 07/17/18 09:26 -Exam is unremarkable, pt. has no discomfort or pain and tolerating po solid/fluid. -Will perform xray 07/17/18 10:55 -Urine hcg is negative -Chest xray: ER wet read show no active disease -Pt. feels well, no discomfort or pain, chronic gastritis and request pepcid prescription. -Discharge home with pepcid, follow up with your own pmd and GI/ENT within 2 days, return to the ER for any new or worsening signs or symptoms - RAD Interpretation Radiology Orders: 07/17/18 09:12 CHEST TWO VIEWS (PA/LAT) [RAD] Stat Date of service: 07/17/2018 HISTORY: medical clearance COMPARISON: No prior. FINDINGS: LUNGS: No active pulmonary disease. PLEURA: No significant pleural effusion identified, no pneumothorax apparent. CARDIOVASCULAR: No atherosclerotic calcification present Normal. OSSEOUS STRUCTURES: No significant abnormalities. VISUALIZED UPPER ABDOMEN: Normal. OTHER FINDINGS: None. IMPRESSION: No active disease. Concordant results with the preliminary interpretation rendered by the emergency department physician\PA at the conclusion of the procedure. [employer]: Radiologist - PA / CUSTOMER ACCOUNT MANAGER / Resident Statement /DO has reviewed & agrees with the documentation as recorded. Disposition/Present on Arrival - Present on Arrival Any Indicators Present on Arrival: No History of DVT/PE: No History of Uncontrolled Diabetes: No Urinary Catheter: No History of Decub. Ulcer: No History Surgical Site Infection Following: None - Disposition Have Diagnosis and Disposition been Completed?: Yes Diagnosis: General medical exam, Medication refill Disposition: HOME/ ROUTINE Disposition Time: 10:56 Patient Plan: Discharge Condition: GOOD Additional Instructions: -Discharge home with pepcid, follow up with your own pmd and GI/ENT within 2 days, return to the ER for any new or worsening signs or symptoms Prescriptions: Famotidine [Pepcid] 20 mg PO BID #14 tab Referrals: Pedro Rebolledo MD [Primary Care Provider] - Follow up with primary James Javed MD [Medical Doctor] - Follow up with primary [facility] [Outside] - Follow up with primary Ari Anders DO [Staff Provider] - Follow up with primary Forms: [employer] (Thai), WORK NOTE
--- NOTE | 2018-07-17 11:14 | RAD ---
Date of service: 07/17/2018 HISTORY: medical clearance COMPARISON: No prior. FINDINGS: LUNGS: No active pulmonary disease. PLEURA: No significant pleural effusion identified, no pneumothorax apparent. CARDIOVASCULAR: No atherosclerotic calcification present Normal. OSSEOUS STRUCTURES: No significant abnormalities. VISUALIZED UPPER ABDOMEN: Normal. OTHER FINDINGS: None. IMPRESSION: No active disease. Concordant results with the preliminary interpretation rendered by the emergency department physician procedure.
== END 2018-07-17 11:13 | disposition home or self-care (01) ==
LOC: ED 08:55
DX: Z00.00 Encounter for general adult medical examination without abnormal findings (principal); Z76.0 Encounter for issue of repeat prescription

== ENCOUNTER 2018-08-23 09:26 | Outpatient (CLI) | payer MEDICAID | END 2018-08-23 09:27 | disposition home or self-care (01) | LOC: RAD 09:26 | DX: Z12.31 Encounter for screening mammogram for malignant neoplasm of breast (principal) ==

== ENCOUNTER 2018-08-29 08:54 | Emergency (ER) | payer MEDICAID ==
[2018-08-29 08:55] VITALS: BMI 27.4
[2018-08-29 09:37] VITALS: TEMP 97.5; O2SAT 100
--- NOTE | 2018-08-29 10:26 | ED PDOC ---
Arrival/HPI - General Chief Complaint: ENT Problem Time Seen by Provider: 08/29/18 09:26 Historian: Patient - History of Present Illness Narrative History of Present Illness (Text): 08/29/18 10:11 43 year old female, with no significant past medical history, presents to the emergency department complaining of 1 month history of left ear pain and slight left-sided headache that began yesterday. Patient states she develop a machine- like sound coming from her left ear. 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 Patient denies any trauma or injury. Patient denies any fever, chills, nasal congestion, sore throat, nausea, vomiting, diarrhea, dizziness, or any other complaints. PMD: Dr. Rebolledo Symptom Onset: Gradual Symptom Course: Unchanged Activities at Onset: Light Context: Home Past Medical History - Provider Review Nursing Documentation Reviewed: Yes - Infectious Disease Hx of Infectious Diseases: None - Tetanus Immunization Tetanus Immunization: Unknown - Past Medical History Past Medical History: No Previous - Cardiac Hx Cardiac Disorders: No - Pulmonary Hx Respiratory Disorders: No - Neurological Hx Neurological Disorder: No - HEENT Hx HEENT Disorder: No - Renal Hx Renal Disorder: No - Endocrine/Metabolic Hx Endocrine Disorders: No - Hematological/Oncological Hx Blood Disorders: No - Integumentary Hx Dermatological Disorder: Yes Hx Psoriasis: Yes - Musculoskeletal/Rheumatological Hx Musculoskeletal Disorders: Yes Other/Comment: fibromyalgia - Gastrointestinal Hx Gastrointestinal Disorders: Yes Hx Gastritis: Yes - Genitourinary/Gynecological Hx Genitourinary Disorders: No - Psychiatric Hx Psychophysiologic Disorder: No Hx Substance Use: No - Surgical History Hx Cholecystectomy: Yes - Anesthesia Hx Anesthesia: Yes Hx Anesthesia Reactions: No Hx Malignant Hyperthermia: No - Suicidal Assessment Feels Threatened In Home Enviroment: No Family/Social History - Physician Review Nursing Documentation Reviewed: Yes Family/Social History: No Known Family HX Smoking Status: Never Smoked Hx Alcohol Use: No Hx Substance Use: No Hx Substance Use Treatment: No Allergies/Home Meds Allergies/Adverse Reactions: Allergies seafood Allergy (Uncoded 08/29/18 09:18) RASH Review of Systems - Physician Review All systems were reviewed & negative as marked: Yes - Review of Systems Constitutional: absent: Fevers, Other (chills) ENT: Other (ear pain). absent: Sore Throat, Sinus Congestion Gastrointestinal: absent: Diarrhea, Nausea, Vomiting Neurological: Headache. absent: Dizziness Physical Exam Vital Signs Reviewed: Yes Vital Signs Temp Pulse Resp BP Pulse Ox 08/29/18 09:09 97.5 F L 57 L 17 114/74 100 Temperature: Afebrile Blood Pressure: Normal Pulse: Regular Respiratory Rate: Normal Appearance: Positive for: Well-Appearing, Non-Toxic, Comfortable Pain Distress: None Mental Status: Positive for: Alert and Oriented X 3 - Systems Exam Head: Present: Atraumatic Ears: Present: Normal, NORMAL TM, Normal Canal, Other (no mastoid tenderness, no erythema, no pinna pull or tragal tug. ). No: Erythema, TM Bulging, Fluid, TM Perf Mouth: Present: Moist Mucous Membranes Pharnyx: Present: Normal Respiratory/Chest: Present: Clear to Auscultation, Good Air Exchange. No: Respiratory Distress, Accessory Muscle Use, Wheezes, Rales, Rhonchi Cardiovascular: Present: Regular Rate and Rhythm, Normal S1, S2. No: Murmurs Neurological: Present: GCS=15, Speech Normal Skin: Present: Warm, Dry, Normal Color. No: Rashes Psychiatric: Present: Alert, Oriented x 3 Medical Decision Making ED Course and Treatment: 08/29/18 09:35 Impression: 43 year old female presents complaining of 1 month history of left ear pain and slight left-sided headache that began yesterday. Plan: -- Head CT w/o contrast -- Reassess and disposition Prior Visits: Notes and results from previous visits were reviewed. Progress Notes: 08/29/18 11:20 ct head; FINDINGS: HEMORRHAGE: No intracranial hemorrhage. BRAIN: No mass effect or edema. No atrophy or chronic microvascular ischemic changes. VENTRICLES: Unremarkable. No hydrocephalus. CALVARIUM: Unremarkable. PARANASAL SINUSES: Unremarkable as visualized. No significant inflammatory changes. MASTOID AIR CELLS: Unremarkable as visualized. No inflammatory changes. OTHER FINDINGS: None. IMPRESSION: No acute intracranial findings pt reassessment; pt is non toxic well appearing; no distress; stable vitals. i discussed all results in depth with patient I have advised taking nasal spray 2 sprays each nostril once daily and following up with ENT specialist with me to return if symptoms worsen persist or if new concerning symptoms develop Patient verbalizes understanding of discharge instructions and need for immediate followup. All aspects of this case were discussed the attending of record. Impression: Earache Tylenol every 4 hours as needed for pain Flonase 2 sprays each nostril once daily Follow-up with the ENT specialist within the next 2 days Follow-up with primary care physician within the next 2 days Return immediately if symptoms worsen persist or if new concerning symptoms develop - RAD Interpretation Radiology Orders: 08/29/18 09:39 HEAD W/O CONTRAST [CT] Stat Poker Supervisor: Radiologist - Scribe Statement The provider has reviewed the documentation as recorded by the Mitchelibisamar Gallardo Provider Scribe Attestation: All medical record entries made by the Scribe were at my direction and personally dictated by me. I have reviewed the chart and agree that the record accurately reflects my personal performance of the history, physical exam, medical decision making, and the department course for this patient. I have also personally directed, reviewed, and agree with the discharge instructions and disposition.\ Disposition/Present on Arrival - Present on Arrival Any Indicators Present on Arrival: No History of DVT/PE: No History of Uncontrolled Diabetes: No Urinary Catheter: No History of Decub. Ulcer: No History Surgical Site Infection Following: None - Disposition Have Diagnosis and Disposition been Completed?: Yes Diagnosis: Earache Disposition: HOME/ ROUTINE Disposition Time: 11:00 Patient Plan: Discharge Condition: GOOD Discharge Instructions (ExitCare): Eustachian Tube Problems (DC) Additional Instructions: Tylenol every 4 hours as needed for pain Flonase 2 sprays each nostril once daily Follow-up with the ENT specialist within the next 2 days Follow-up with primary care physician within the next 2 days Return immediately if symptoms worsen persist or if new concerning symptoms develop Prescriptions: Acetaminophen [Acetaminophen Extra Strength] 500 mg PO Q4H PRN #30 tablet PRN Reason: pain/fever reduction Fluticasone Nasal [Flonase] 2 spr NS DAILY #1 spr Referrals: Brad Smith DO [Staff Provider] - Follow up with primary [employer] [facility] [Outside] - Follow up with primary Nasra Giraldo MD [Medical Doctor] - Follow up with primary Forms: [employer] (Burkinan), WORK NOTE
--- NOTE | 2018-08-29 11:01 | CT ---
Date of service: 08/29/2018 PROCEDURE: CT HEAD WITHOUT CONTRAST. HISTORY: left sided headache/ left ear pain x 1 month COMPARISON: 03/23/2012 TECHNIQUE: Axial computed tomography images were obtained through the head/brain without intravenous contrast. Radiation dose: Total exam DLP = 937.17 mGy-cm. This CT exam was performed using one or more of the following dose reduction techniques: Automated exposure control, adjustment of the mA and/or kV according to patient size, and/or use of iterative reconstruction technique. FINDINGS: HEMORRHAGE: No intracranial hemorrhage. BRAIN: No mass effect or edema. No atrophy or chronic microvascular ischemic changes. VENTRICLES: Unremarkable. No hydrocephalus. CALVARIUM: Unremarkable. PARANASAL SINUSES: Unremarkable as visualized. No significant inflammatory changes. MASTOID AIR CELLS: Unremarkable as visualized. No inflammatory changes. OTHER FINDINGS: None. IMPRESSION: No acute intracranial findings
[2018-08-29 11:08] VITALS: BP 130/71; PULSE 63; RESP 15
== END 2018-08-29 11:47 | disposition home or self-care (01) ==
LOC: ED 08:54
DX: H92.02 Otalgia, left ear (principal); L40.9 Psoriasis, unspecified; M79.7 Fibromyalgia